=== PATIENT | male | born 1975 ===

== ENCOUNTER 2017-11-09 22:16 | Emergency (ER) | payer SELFPAY ==
[2017-11-09 22:32] VITALS: BP 122/82; PULSE 80; RESP 16; TEMP 99.2; O2SAT 97
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
== END 2017-11-10 01:11 | disposition home or self-care (01) ==
LOC: C.ER 22:16
DX: S01.81XA Laceration without foreign body of other part of head, initial encounter (principal); Y08.89XA Assault by other specified means, initial encounter; Y92.9 Unspecified place or not applicable